=== PATIENT | male | born 1995 | race Caucasian/White ===

== ENCOUNTER 2021-06-04 16:49 | Emergency (ER) | payer SELFPAY ==
[~2021-06-04] VITALS: Ht 172.7 cm; Wt 80.0 kg
[2021-06-04] MEDS ORDERED: TETANUS, DIPHTHERIA, PERTUSSIS VAC/PF 0.5ML (>10YR OLD) IM ONE (17:15)
[2021-06-04] MEDS ORDERED: ACETAMINOPHEN 325MG TABLET PO ONE (17:15)
[2021-06-04] MEDS ORDERED: BACITRACIN ZINC OINT UDPKT TOP ONE (17:15)
[2021-06-04] MEDS ORDERED: LIDOCAINE HCL/PF 1% 10 MG/ML 5ML VIAL INFIL ONE (17:15)
[2021-06-04] MEDS ORDERED: LIDOCAINE HCL 1% 10 MG/ML 10ML VIAL INJ NR (19:00)
[2021-06-04 21:23] LABS: HEPATITIS B SURFACE ANTIGEN NEGATIVE
[2021-06-04 23:12] LABS: HEPATITIS B SURFACE ANTIGEN NEGATIVE
[2021-06-05 05:46] VITALS: BP 134/83
== END 2021-06-05 05:49 | disposition home or self-care (01) ==
LOC: ER 16:49
DX: S01.01XA Laceration without foreign body of scalp, initial encounter (principal); X58.XXXA Exposure to other specified factors, initial encounter; Y93.89 Activity, other specified; Y92.89 Other specified places as the place of occurrence of the external cause; Y99.8 Other external cause status
CPT/HCPCS: 36415; 70450; 86705; 86709; 86803; 87340; 90471; 90715; 99284; A4217; Z7610; J3490

== ENCOUNTER 2021-06-14 11:49 | Emergency (ER) | payer SELFPAY ==
[~2021-06-14] VITALS: Ht 157.5 cm; Wt 60.0 kg
[2021-06-14] MEDS ORDERED: ACETAMINOPHEN 325MG TABLET PO ONE (12:45)
[2021-06-14 14:00] VITALS: BP 134/74
== END 2021-06-14 14:51 | disposition left against medical advice (07) ==
LOC: ER 11:49
DX: S01.01XD Laceration without foreign body of scalp, subsequent encounter (principal); Z48.02 Encounter for removal of sutures; X58.XXXD Exposure to other specified factors, subsequent encounter
CPT/HCPCS: 99282; Z7610